=== PATIENT | male | born 1995 | race Caucasian/White ===

== ENCOUNTER 2017-01-05 16:13 | Emergency (ER) | payer BC, OTHER ==
[2017-01-05 18:22] VITALS: BP 119/66
--- NOTE | 2017-01-05 18:36 | EDM.PDOC ---
<MarceloKar - Last Filed: 01/05/17 19:06> ED UPPER BACK/NECK PAIN/INJURY - General Chief Complaint: Back Pain or Injury Stated Complaint: HURT AT WORK;NECK AND SHOULDER INJURY Time Seen by Provider: 01/05/17 18:32 Source of Information: Reports: Patient History Limitations: Reports: No limitations - History of Present Illness INITIAL COMMENTS - FREE TEXT/NARRATIVE: Pt states that he was riding on the rear of a backhoe carrying a chain when the chain got caught on the tire and pulled him off. States that he landed on his neck/back. c/o lower nec/upper back pain. Denies LOC. states that he just doesn' t feel right. Location: Reports: upper Front/Back Body image: 1 - pain Quality: Reports: Ache Severity: moderate Place of Occurrence: work Improves with: Reports: None Worsens with: Reports: Movement Associated Symptoms: Reports: Denies symptoms - Related Data Allergies/ADRs: Allergies Allergy/AdvReac Type Severity Reaction Status Date / Time No Known Allergies Allergy Verified 04/16/16 17:55 Past Medical History - Past Health History Medical/Surgical History: Denies Medical/Surgical History Social & Family History - Family History Family Medical History: Noncontributory - Tobacco Use Smoking Status *Q: Never Smoker Second Hand Smoke Exposure: No - Caffeine Use Caffeine Use: Reports: Coffee, Soda - Recreational Drug Use Recreational Drug Use: No - Living Situation & Occupation Living situation: Reports: with family Occupation: employed ED ROS GENERAL - Review of Systems Review Of Systems: See Below Musculoskeletal: Reports: neck pain, back pain Neurological: Reports: No Symptoms ED EXAM, UPPER BACK/NECK PAIN - Physical Exam Exam: See Below Exam Limited By: No limitations General Appearance: alert, WD/WN, no apparent distress Eye Exam: bilateral eye: PERRL Ears Exam: normal external exam, normal canal, hearing grossly normal, normal TMs Nose Exam: normal inspection, normal mucousa, no blood Head Exam: atraumatic, normocephalic Neck Exam: normal alignment, normal inspection, spinous processes tender, tender midline Nexus Criteria: posterior, midline cervical tenderness Cardiovascular/Respiratory: regular rate, rhythm, no M/R/G, normal peripheral pulses, no JVD, normal breath sounds, no respiratory distress GI/Abdominal: normal bowel sounds, soft, non tender, no organomegaly, no distention, no abnormal bruit, no mass Back Exam: normal inspection, full range of motion, vertebral tenderness (T1) Extremities: normal inspection, normal range of motion, non-tender, no pedal edema, normal capillary refill 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, no motor/sensory deficits, alert, normal mood/affect, oriented x 3 Skin Exam: Normal color, Warm/dry Course - Vital Signs Last Recorded V/S: Last Vital Signs Temp 36.8 C 01/05/17 16:57 Pulse 80 01/05/17 18:21 Resp 18 01/05/17 18:21 BP 119/66 01/05/17 18:21 Pulse Ox 99 01/05/17 18:21 - Orders/Labs/Meds Orders: Active Orders 24 hr Category Date Time Status Spinal Immobilization [RC] ASDIRECTED Care 01/05/17 18:28 Active Cervical Spine wo Cont [CT] Urgent Exams 01/05/17 18:28 Taken Head wo Cont [CT] Urgent Exams 01/05/17 18:28 Taken Thoracic Spine wo Cont [CT] Urgent Exams 01/05/17 18:35 Taken Meds: Medications Discontinued Medications Generic Name Dose Route Start Last Admin Trade Name Freq PRN Reason Stop Dose Admin Ketorolac Tromethamine 30 mg 01/05/17 18:49 01/05/17 19:23 Toradol IM 01/05/17 18:50 30 mg ONETIME ONE Administration Departure - Departure Disposition: Home, Self-Care 01 Clinical Impression: Cervical strain, acute Qualifiers: Encounter type: initial encounter Qualified Code(s): S16.1XXA - Strain of muscle, fascia and tendon at neck level, initial encounter Acute thoracic myofascial strain Qualifiers: Encounter type: initial encounter Qualified Code(s): S29.019A - Strain of muscle and tendon of unspecified wall of thorax, initial encounter Instructions: Back Pain, Adult, [id number] Forms: ED Department Discharge Additional Instructions: 1) rest and avoid vigorous activities next 48 hours 2) try heat or ice to sore areas 3) tylenol or motrin for pain 4) follow up at clinic or recheck as needed <Skip Leo - Last Filed: 01/05/17 19:54> Course - Re-Assessments/Exams Free Text/Narrative Re-Assessment/Exam: 01/05/17 19:50 results discussed with Pt who is feeling much better post IM toradol. Departure - Departure Time of Disposition: 20:00 Condition: good
[2017-01-05] MEDS ORDERED: Ketorolac 30 MG/ML SDV IM ONE (18:49)
[2017-01-05] MEDS ORDERED: Acetaminophen/HYDROcodone 325-10 MG Tab ONE (19:55)
[2017-01-05] MEDS ORDERED: Acetaminophen/HYDROcodone 325-10 MG Tab PO ONE (19:55)
== END 2017-01-05 20:02 | disposition home or self-care (01) ==
LOC: DL.ED 16:13
DX: S16.1XXA Strain of muscle, fascia and tendon at neck level, initial encounter (principal); W18.30XA Fall on same level, unspecified, initial encounter; Y93.89 Activity, other specified
CPT/HCPCS: 70450; 72125; 72128; 96372; 99284; J1885; A9270-GY

== ENCOUNTER 2017-05-09 23:18 | Emergency (ER) | payer BC, OTHER ==
[2017-05-09 23:42] VITALS: BP 129/74
--- NOTE | 2017-05-09 23:52 | EDM.PDOC ---
[id number] 4d PAIN BEHIND EAR AND JAW Time Seen by Provider: 05/09/17 23:50 Source of Information: Reports: Patient History Limitations: Reports: No Limitations - History of Present Illness INITIAL COMMENTS - FREE TEXT/NARRATIVE: c/o pain below jaw and under right ear, worse with stress and touching area. Ongoing for 2 weeks, worse tonight. Tried tylenol a few times but doesn't help. Has not been seen in clinic. No fever. Right Occipital Head Pain Score (Numeric/FACES): 7 - Related Data Allergies Allergy/AdvReac Type Severity Reaction Status Date / Time No Known Allergies Allergy Verified 05/09/17 23:31 Home Meds: Home Meds . [No Known Home Meds] 05/09/17 [History] Past Medical History - Past Health History Medical/Surgical History: Denies Medical/Surgical History HEENT History: Reports: None Cardiovascular History: Reports: None Respiratory History: Reports: None Gastrointestinal History: Reports: None Genitourinary History: Reports: None Musculoskeletal History: Reports: None Neurological History: Reports: None Psychiatric History: Reports: None Endocrine/Metabolic History: Reports: None Hematologic History: Reports: None Immunologic History: Reports: None Oncologic (Cancer) History: Reports: None Dermatologic History: Reports: None - Infectious Disease History Infectious Disease History: Reports: None - Past Surgical History HEENT Surgical History: Reports: None Cardiovascular Surgical History: Reports: None Respiratory Surgical History: Reports: None GI Surgical History: Reports: None Male Surgical History: Reports: None Endocrine Surgical History: Reports: None Neurological Surgical History: Reports: None Musculoskeletal Surgical History: Reports: None Social & Family History - Family History Family Medical History: Noncontributory - Tobacco Use Smoking Status *Q: Never Smoker Second Hand Smoke Exposure: No - Caffeine Use Caffeine Use: Reports: Coffee, Soda - Recreational Drug Use Recreational Drug Use: No - Living Situation & Occupation Living situation: Reports: with Family Occupation: Employed ED ROS GENERAL - Review of Systems Review Of Systems: ROS reveals no pertinent complaints other than HPI. ED EXAM, GENERAL - Physical Exam Exam: See Below Exam Limited By: No Limitations General Appearance: Alert, No Apparent Distress Eye Exam: Bilateral Eye: EOMI, PERRL Ears: Normal External Exam, Normal TMs Nose: Normal Inspection Throat/Mouth: Normal Inspection, Other (slight TMJ tenderness) Neck: Lymphadenopathy (R) (slight posterior auricular lymphadenopathy on right) Respiratory/Chest: No Respiratory Distress, Lungs Clear Cardiovascular: Normal Peripheral Pulses, Regular Rate, Rhythm Extremities: Normal Inspection Neurological: Alert, Oriented, Normal Cognition Psychiatric: Anxious Skin Exam: Warm, Dry, Intact, Normal Color Course - Vital Signs Last Recorded V/S: Last Vital Signs Temp 97.9 F 05/09/17 23:37 Pulse 73 05/09/17 23:37 Resp 16 05/09/17 23:37 BP 129/74 05/09/17 23:37 Pulse Ox 100 05/09/17 23:37 Departure - Departure Time of Disposition: 23:48 Disposition: Home, Self-Care 01 Condition: Good Clinical Impression: Enlarged lymph node - Discharge Information Instructions: Temporomandibular Joint Syndrome, Lymphadenopathy Forms: ED Department Discharge Additional Instructions: tylenol or ibuprofen for discomfrt follow up in clinic with PCP regarding ultrasound of area
== END 2017-05-09 23:54 | disposition home or self-care (01) ==
LOC: DL.ED 23:18
DX: R59.0 Localized enlarged lymph nodes (principal)
CPT/HCPCS: 99282; 99283

== ENCOUNTER 2018-06-09 16:26 | Emergency (ER) | payer OTHER, BC ==
[2018-06-09] MEDS ORDERED: Cyclobenzaprine 10 MG Tab PO ONE (16:27)
[2018-06-09] MEDS ORDERED: Iopamidol 612 MG/ML 100 ML Bottle IVPUSH ONE (16:31)
[2018-06-09] MEDS ORDERED: Sodium Chloride 0.9% 10 ML Syringe FLUSH PRN (16:31)
[2018-06-09] MEDS ORDERED: fentaNYL 100 MCG/2 ML SDV IVPUSH ONE (17:05)
[2018-06-09] MEDS ORDERED: Ondansetron 4 MG/2 ML SDV IV ONE (17:05)
[2018-06-09] MEDS ORDERED: Diphtheria,Pertussis(Acell),Tetanus Vaccine 0.5 ML SDV IM ONE (17:05)
[2018-06-09] MEDS ORDERED: Sodium Chloride 0.9% 1,000 ML IV ONE (17:05)
[2018-06-09] MEDS ORDERED: Bacitracin Oint 1 GM U/D Packet TOP ONE (17:06)
[2018-06-09 17:17] LABS: ANION GAP 12.5; CHLORIDE,CL 105 mmol/L (101-111); SODIUM,NA 140 mmol/L (135-145)
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
[2018-06-09] MEDS ORDERED: Cyclobenzaprine 10 MG Tab ONE (18:12)
== END 2018-06-09 18:20 | disposition home or self-care (01) ==
LOC: DL.ED 16:26
DX: S06.0X1A Concussion with loss of consciousness of 30 minutes or less, initial encounter (principal); S70.11XA Contusion of right thigh, initial encounter; S00.01XA Abrasion of scalp, initial encounter; V53.5XXA Driver of pick-up truck or van injured in collision with car, pick-up truck or van in traffic accident, initial encounter
CPT/HCPCS: 36415; 70450; 71260; 72125; 74177; 80053; 80305; 81001; 82150; 82962; 83690; 83735; 85025; 85610; 85730; 90471; 90715; 93005; 96365; 96375; 99285; G0480; J2405; J3010; J7030; J7050; Q9967; A9270-GY